=== PATIENT | male | born 1985 | race Caucasian/White ===

== ENCOUNTER 2021-02-25 18:32 | Emergency (ER) | payer SELFPAY ==
[~2021-02-25] VITALS: Ht 170.2 cm; Wt 99.8 kg
[2021-02-25 18:40] VITALS: BP_SYST 125
--- NOTE | 2021-02-25 18:40 | NUR ---
Pt waiting in tent for ER bed to become available.
--- NOTE | 2021-02-25 19:05 | NUR ---
Pt to bed 8 for evaluation. Report given to SARI Jordan who will assume care.
--- NOTE | 2021-02-25 19:08 | NUR ---
Patient BIB by family from home. C/O Flu symtoms x 7 days. Patient reported, had flu symptoms for a week, test [id number] 3 days ago, A/O,X4, shortness of breath, nausea, vomitting, oxygen sat 89-93 % RA, place on residential monitor and pulse ox.
--- NOTE | 2021-02-25 19:10 | NUR ---
ER Dr. Lopez at bedside examining patient.
--- NOTE | 2021-02-25 19:34 | NUR ---
COVID-19 swabs collected and sent to lab.
--- NOTE | 2021-02-25 19:35 | NUR ---
# 20 gauge angiocath placed to LAC. Use of asceptic technique. Opsite placed over site. Blood return noted. Blood for lab drawn from site. Flushed with 10 cc of normal saline. No evidence of infiltration noted. Patient tolerated well.
[2021-02-25 20:07] LABS: BASOPHILS % (AUTO) 0.6 % (0.0-2.0); HEMATOCRIT 47.7 % (36-54); HEMOGLOBIN 16.2 g/dL (14.0-18.0); LYMPHOCYTES # (AUTO) 0.9 K/uL (1.0-5.5); LYMPHOCYTES % (AUTO) 21.6 % (20.5-51.5); MEAN CORPUSCULAR HEMOGLOBIN 30 pg (27-31); MEAN CORPUSCULAR HGB CONC 34 % (32-36); MEAN CORPUSCULAR VOLUME 88 fL (79.0-98.0); MONOCYTES # (AUTO) 0.6 K/uL (0.0-1.0); MONOCYTES % (AUTO) 13.6 % (1.7-9.3); NEUTROPHILS # (AUTO) 2.8 K/uL (1.8-7.7); NEUTROPHILS % (AUTO) 64.2 % (40.0-70.0); PLATELET COUNT (AUTO) 177 K/uL (130-430); RED BLOOD CELL COUNT(AUTO) 5.43 MIL/uL (4.2-6.2); RED CELL DISTRIBUTION WIDTH 12.8 % (9.0-15.0); WHITE BLOOD COUNT (AUTO) 4.3 K/uL (4.8-10.8)
[2021-02-25 20:14] LABS: ANION GAP 5 (5-15); CALCIUM 8.4 mg/dL (8.4-11.0); CHLORIDE 98 mmol/L (98-107); CREATININE 1.27 mg/dL (0.55-1.30); GLUCOSE 99 mg/dL (70-99); SODIUM SERUM 134 mmol/L (136-145); UREA NITROGEN, BLOOD 15 mg/dL (8-21)
[2021-02-25 20:16] LABS: GFR AFRICAN AMERICAN 84 mL/min (>90)
[2021-02-25] MEDS ORDERED: ALBU8.5H8 INH (20:18)
[2021-02-25] MEDS ORDERED: PRED20TA PO (20:18)
[2021-02-25 20:20] LABS: ACETONE, SERUM NEGATIVE (NEGATIVE); ALANINE AMINOTRANSFERASE 134 U/L (12-78); ALBUMIN 3.4 g/dL (3.4-4.8); AMYLASE 63 U/L (0-100); ASPARTATE AMINOTRANSFERASE 108 U/L (10-37); LIPASE 137 U/L (73-393); TOTAL BILIRUBIN 0.4 mg/dL (0.0-1.0)
[2021-02-25] MEDS ORDERED: DEXAMETHASONE SOD PHOSPHATE 10 MG/ML VIAL IVP ONE (20:30)
[2021-02-25 20:45] VITALS: BP_SYST 121
--- NOTE | 2021-02-25 20:45 | NUR ---
Patient given written and verbal discharge instructions and verbalizes understanding. ER MD discussed with patient the results and treatment provided. Patient in stable condition. ID arm band removed. IV catheter removed intact and dressing applied, no active bleeding. Rx of Proair HFA and Prednisone given. Patient educated on pain management and to follow up with PMD. Pain Scale 1/10. Opportunity for questions provided and answered. Medication side effect fact sheet provided.
[2021-02-25 20:46] LABS: C-REACTIVE PROTEIN QUANT 10.9 mg/dL (0-0.5)
== END 2021-02-25 20:45 | disposition home or self-care (01) ==
LOC: SED 18:32
DX: U07.1 COVID-19 (principal); J40 Bronchitis, not specified as acute or chronic; Z79.899 Other long term (current) drug therapy
CPT/HCPCS: 36415; 36600; 71045; 80053; 82009; 82150; 82803; 83605; 83690; 85025; 86140; 87426; 96374; 99284; J1100

== ENCOUNTER 2022-10-23 21:55 | Emergency (ER) | payer MEDICAID, OTHER ==
[~2022-10-23] VITALS: Ht 170.2 cm; Wt 104.3 kg
[~2022-10-23 21:55] MED LIST: ALBU8.5H8 INH; PRED20TA PO
[2022-10-23 22:15] VITALS: BP_SYST 128; PULSE 80; RESP 16; TEMP 97.9; O2SAT 96
[2022-10-23] MEDS ORDERED: IBUP-1971 PO (22:43)
[2022-10-23] MEDS ORDERED: BACITRACIN 1 GM OINT TP ONE (22:45)
[2022-10-23 23:17] VITALS: BP_SYST 128; PULSE 80; RESP 16; TEMP 97.9; O2SAT 96
== END 2022-10-23 23:17 | disposition home or self-care (01) ==
LOC: SED 21:55
DX: S71.152A Open bite, left thigh, initial encounter (principal); Z79.899 Other long term (current) drug therapy; W54.0XXA Bitten by dog, initial encounter; Y93.89 Activity, other specified; Y92.89 Other specified places as the place of occurrence of the external cause; Y99.8 Other external cause status
CPT/HCPCS: 99282